=== PATIENT | female | born 1945 | race Caucasian/White ===

== ENCOUNTER 2017-09-11 07:48 | Outpatient (CLI) | payer OTHER ==
[~2017-09-11 07:48] MED LIST: CARTIA XT240 MG PO; CATAFLAM50 MG PO; COZAAR100 MG PO; GABAPENTIN100 MG PO; LASIX20 MG PO; NABUMETONE500 MG PO; NEURONTIN300 MG PO; ORPH100T PO; PERCOCET 5/3251 TAB PO; RYBIX ODT50 MG PO; ULTRACET PO; XARELTO10 MG PO
== END 2017-09-11 07:52 | disposition home or self-care (01) ==
LOC: SONOGRAMA 07:48
DX: K74.60 Unspecified cirrhosis of liver (principal)

== ENCOUNTER 2017-10-08 09:31 | Outpatient (CLI) | payer OTHER | END 2017-10-08 09:43 | disposition home or self-care (01) | LOC: RAD 09:31 → MAMO-SONO 10:15 | DX: Z12.31 Encounter for screening mammogram for malignant neoplasm of breast (principal); Z87.898 Personal history of other specified conditions; N63.10 Unspecified lump in the right breast, unspecified quadrant; N63.20 Unspecified lump in the left breast, unspecified quadrant; M25.561 Pain in right knee; M25.562 Pain in left knee ==

== ENCOUNTER 2021-07-23 13:26 | Inpatient (IN) | payer OTHER ==
[~2021-07-23] VITALS: Ht 170.2 cm; Wt 66.7 kg
[2021-07-24] MEDS ORDERED: ATORVASTATIN CA20 MG (08:31)
[2021-07-24] MEDS ORDERED: CARBAMAZEPINE200 MG (08:32)
[2021-07-24] MEDS ORDERED: ST. JOSEPH ASPI81 M2 (08:32)
[2021-07-24] MEDS ORDERED: LEVETIRACETAM250 MG (08:32)
[2021-07-24] MEDS ORDERED: DONEPEZIL HCL5 MG (08:32)
[2021-07-24] MEDS ORDERED: LEVOTHYROXINE100 MCG (08:32)
[2021-07-24] MEDS ORDERED: FAMOTIDINE20 MG (08:32)
[2021-07-24] MEDS ORDERED: SPIRONOLACTONE25 MG (08:33)
[2021-07-24] MEDS ORDERED: AMLODIPINE BESYL5 MG (08:33)
[2021-07-24] MEDS ORDERED: CLONAZEPAM0.5 MG (08:33)
== END 2021-08-26 22:25 | disposition expired | DRG 871 ==
LOC: ER 13:26 → ICU-2 22:29 → ICU 07-25 18:41 → MEDI 08-02 14:48
PROVIDERS: ADMIT Internal Medicine; ATTEND Internal Medicine
PROC: 4A033R1 Measurement of Arterial Saturation, Peripheral, Percutaneous Approach (ICD-10-PCS; 2021-07-23)
PROC: 3E0F7SF Introduction of Other Gas into Respiratory Tract, Via Natural or Artificial Opening (ICD-10-PCS; 2021-07-23)
PROC: BW28ZZZ Computerized Tomography (CT Scan) of Head (ICD-10-PCS; 2021-07-24)
PROC: 0HB6XZZ Excision of Back Skin, External Approach (ICD-10-PCS; 2021-07-26)
PROC: 02HV33Z Insertion of Infusion Device into Superior Vena Cava, Percutaneous Approach (ICD-10-PCS; 2021-07-27)
PROC: 30243N1 Transfusion of Nonautologous Red Blood Cells into Central Vein, Percutaneous Approach (ICD-10-PCS; principal; 2021-07-28)
PROC: CW1N1ZZ Planar Nuclear Medicine Imaging of Whole Body using Technetium 99m (Tc-99m) (ICD-10-PCS; 2021-08-01)
PROC: 0HBKXZZ Excision of Right Lower Leg Skin, External Approach (ICD-10-PCS; 2021-08-02)
PROC: 4A12X4Z Monitoring of Cardiac Electrical Activity, External Approach (ICD-10-PCS; 2021-08-02)
PROC: CW1 Nuclear Medicine, Anatomical Regions, Planar Nuclear Medicine Imaging (ICD-10-PCS; 2021-08-07)
PROC: 0HBKXZZ Excision of Right Lower Leg Skin, External Approach (ICD-10-PCS; 2021-08-09)
PROC: 02PYX3Z Removal of Infusion Device from Great Vessel, External Approach (ICD-10-PCS; 2021-08-09)
PROC: BW2110Z Computerized Tomography (CT Scan) of Abdomen and Pelvis using Low Osmolar Contrast, Unenhanced and Enhanced (ICD-10-PCS; 2021-08-09)
PROC: 0DH63UZ Insertion of Feeding Device into Stomach, Percutaneous Approach (ICD-10-PCS; 2021-08-11)
PROC: 0HBHXZZ Excision of Right Upper Leg Skin, External Approach (ICD-10-PCS; 2021-08-16)
PROC: 3E0F7GC Introduction of Other Therapeutic Substance into Respiratory Tract, Via Natural or Artificial Opening (ICD-10-PCS; 2021-08-21)
PROC: 0HB6XZZ Excision of Back Skin, External Approach (ICD-10-PCS; 2021-08-23)
PROC: 0HBKXZZ Excision of Right Lower Leg Skin, External Approach (ICD-10-PCS; 2021-08-23)
DX: A41.9 Sepsis, unspecified organism (principal); L89.154 Pressure ulcer of sacral region, stage 4; R65.21 Severe sepsis with septic shock; M86.8X8 Other osteomyelitis, other site; N17.8 Other acute kidney failure; D62 Acute posthemorrhagic anemia; J90 Pleural effusion, not elsewhere classified; E87.0 Hyperosmolality and hypernatremia; I48.20 Chronic atrial fibrillation, unspecified; L03.311 Cellulitis of abdominal wall; L89.610 Pressure ulcer of right heel, unstageable; L08.89 Other specified local infections of the skin and subcutaneous tissue; B96.4 Proteus (mirabilis) (morganii) as the cause of diseases classified elsewhere; B95.61 Methicillin susceptible Staphylococcus aureus infection as the cause of diseases classified elsewhere; G30.8 Other Alzheimer's disease; F02.80 Dementia in other diseases classified elsewhere, unspecified severity, without behavioral disturbance, psychotic disturbance, mood disturbance, and anxiety; R41.82 Altered mental status, unspecified; I10 Essential (primary) hypertension; D72.828 Other elevated white blood cell count; G62.9 Polyneuropathy, unspecified; R09.02 Hypoxemia; D69.6 Thrombocytopenia, unspecified; E87.6 Hypokalemia; E83.39 Other disorders of phosphorus metabolism; R13.19 Other dysphagia; E86.0 Dehydration; Z20.822 Contact with and (suspected) exposure to COVID-19; Z74.01 Bed confinement status